=== PATIENT | female | born 1960 | race Hispanic/Latino ===

== ENCOUNTER 2018-10-05 15:52 | Day surgery (SDC) | payer BC ==
[2018-10-05] MEDS ORDERED: Cyclopentolate W/ Phenylephrin 40 DROP/2 ML BOT ONE (16:25)
[2018-10-05] MEDS ORDERED: Cyclopentolate 1% Opth Drop 2 ML BOT ONE (16:25)
[2018-10-05] MEDS ORDERED: Phenylephrine 2.5% Ophth Soln 5 ML BOT ONE (16:25)
[2018-10-05] MEDS ORDERED: Atropine Sulfate 1% Ophth Ointment 3.5 gm Tube ONE (16:28)
[2018-10-05] MEDS ORDERED: Ondansetron PF 4 MG/2 ML Vial ONE (16:28)
[2018-10-05] MEDS ORDERED: CEFAZOLIN 1 GM VIAL ONE (16:28)
[2018-10-05] MEDS ORDERED: Maxitrol 0.1% Opth Oint 3.5 GM TUBE ONE (16:28)
[2018-10-05] MEDS ORDERED: Triamcinolone 40 MG/ML VIAL ONE (16:28)
[2018-10-05] MEDS ORDERED: Bupivacaine 0.75% 10 ML AMP ONE (16:28)
[2018-10-05] MEDS ORDERED: Lidocaine 4% PF 5 ML AMP ONE (16:28)
[2018-10-05] MEDS ORDERED: PROPOFOL 200 MG/20 ML VIAL ONE (16:28)
[2018-10-05] MEDS ORDERED: Lidocaine 1% PF 5 ML VIAL ONE ×2 (16:28)
[2018-10-05] MEDS ORDERED: Fluorouracil 100 MG, Enoxaparin Sodium 25 MG, EPINEPHrine 0.3 MG in Ophthalmic Irrigati... IVPB SCH (16:30)
[2018-10-05] MEDS ORDERED: Midazolam HCl 2 mg/2 ml Vial ONE (17:21)
[2018-10-05] MEDS ORDERED: Lidocaine 2% 11 ML SYR ONE (17:24)
--- NOTE | 2018-10-06 01:42 | OP ---
DATE OF PROCEDURE: 10/05/2018 PREOPERATIVE DIAGNOSIS: Rhegmatogenous retinal detachment, left eye. POSTOP DIAGNOSIS: Rhegmatogenous retinal detachment, left eye. PROCEDURES PERFORMED: Pars plana vitrectomy, retinal detachment repair, left eye. ANESTHESIA: General endotracheal anesthesia. DESCRIPTION OF PROCEDURE: The patient was identified in the preoperative holding area. Appropriate informed consent for planned surgical procedure on the left eye had been obtained. The patient was transported to the operative suite. General endotracheal anesthesia was initiated. Retrobulbar block was placed. The patient was prepped and draped in usual sterile manner for ophthalmic surgery on the left eye. A lid speculum was placed in the left eye. A 25-gauge trocar system was placed through conjunctiva and sclera superotemporally, inferotemporally, and supranasally. Infusion line was placed inferotemporally. Light pipe vitreous cutter was inserted into the eye. Core vitrectomy was performed. Vitreous base was trimmed back to 360 degrees using wide-field viewing system. Superior detachment was noted. A tear also was noted at 2 o'clock position and previously existing lattice degeneration. The vitreous was trimmed free of the tears and a posterior drained retinotomy was created superior to the nerve. Complete air-fluid exchange was performed with 10 minutes being allowed for fluid to drain posteriorly. A 360 laser was placed using Endolaser delivery device. A 28% sulfur hexafluoride gas was infused into the eye. Trocars were removed and the eye was noted to retain pressure well. Retrobulbar Kenalog and subconjunctival Ancef were placed. Atropine antibiotic ointment was placed and the eye was patched and shielded. The patient was taken to postoperative recovery unit in good condition, having suffered no immediate perioperative complications. The patient was advised to position the right side down. Followup in the morning with Dr. Cope. Job ID: [id number]
== END 2018-10-05 20:15 | disposition home or self-care (01) ==
LOC: SDC 15:52
PROVIDERS: ATTEND Ophthalmology Retina Specialist
PROC: 08T53ZZ Resection of Left Vitreous, Percutaneous Approach (ICD-10-PCS; principal; 2018-10-05)
DX: H33.022 Retinal detachment with multiple breaks, left eye (principal)
CPT/HCPCS: 67025; J0171; J0690; J1650; J2001; J2250; J2405; J2704; J3301; J3490; J9190